=== PATIENT | male | born 1945 | race Two or more races ===

== ENCOUNTER 2022-06-27 11:45 | Outpatient (REF) | payer MEDICARE, SELFPAY ==
[2022-06-27 12:04] LABS: MANUAL DIFF FLAG NO
[2022-06-27 12:26] LABS: Basophils Percent Auto 0.5 % (0-2); Eosinophils Absolute Auto 0.1 X10*3/uL (0.0-0.4); Eosinophils Percent Auto 1.5 % (0-4); Hematocrit 39.9 % (42.0-52.0); Hemoglobin 13.5 g/dl (14.0-18.0); Imm Gran Abs Auto 0.02 X10*3/uL (0.00-0.03); Imm Gran Pct Auto 0.4 % (0.0-0.4); Lymphocytes Absolute Auto 1.9 X10*3/uL (1.2-4.9); Lymphocytes Percent Auto 34.1 % (20-40); Mean Corpuscular HGB Conc 33.8 g/dl (31.0-36.0); Mean Corpuscular Hemoglobin 30.8 pg (27.0-33.0); Mean Corpuscular Volume 90.9 fL (80.0-98.0); Mean Platelet Volume 10.4 fL (9.4-12.4); Monocytes Absolute Auto 0.6 X10*3/uL (0.1-1.2); Monocytes Percent Auto 10.2 % (2-11); Neutrophils Absolute Auto 2.9 x10*3/uL (2.0-8.3); Neutrophils Percent Auto 53.3 % (45-73); Platelet Count 206 X10*3/uL (160-400); Red Blood Count 4.39 X10*6/uL (4.60-5.80); Red Cell Distribution Width 12.5 % (11.0-16.0); White Blood Count 5.5 X10*3/uL (4.8-10.8)
[2022-06-27 13:02] LABS: Anion Gap 10 (12-20); Blood Urea Nitrogen 26 mg/dL (9-16); Calcium 9.5 mg/dL (8.4-10.2); Carbon Dioxide 30 mmol/L (22-29); Chloride 105 mmol/L (96-108); Estimated Glomerular Filt Rate > 60; Glucose Random 103 mg/dL (60-115); Potassium 5.1 mmol/L (3.3-5.1); Sodium 140 mmol/L (135-145)
[2022-06-28 10:52] LABS: Free Prostate Spec Ag 0.4 ng/mL; Percent Free Prostate Spec Ag 29 % (calc) (>25); Prostate Specific Ag Total 1.4 ng/mL (< OR = 4.0)
== END 2022-06-27 11:46 | disposition home or self-care (01) ==
LOC: HO.LAB 11:45
PROVIDERS: PCP Internal Medicine; Visit Provider Psychiatry & Neurology Neurology
DX: Z12.5 Encounter for screening for malignant neoplasm of prostate (principal); G43.909 Migraine, unspecified, not intractable, without status migrainosus
CPT/HCPCS: 36415; 80048; 84154; 85025

== ENCOUNTER → 2024-06-03 15:29 | Outpatient (REF) | payer MEDICARE, OTHER, SELFPAY ==
--- NOTE | 2024-06-03 15:34 | HM_ITS ---
Conclusion: 1. Patient was monitored for total period of 2 days 2. Baseline was normal sinus rhythm with average heart of 51 beats per minute 3. No significant pauses noted but frequent sinus bradycardia noted with 91% of the time heart rate below 60 beats per minute 4. Occasional PACs noted with total burden of 0.9% without any sustained arrhythmias 5. No patient reported events MTDD
== END ==
LOC: HO.CARD 15:29
PROVIDERS: PCP Internal Medicine; Visit Provider Psychiatry & Neurology Neurology
DX: I61.9 Nontraumatic intracerebral hemorrhage, unspecified (principal); I49.1 Atrial premature depolarization
CPT/HCPCS: 93225

== ENCOUNTER → 2024-06-03 15:34 | Outpatient (BNV) | payer MEDICARE, OTHER, SELFPAY | PROVIDERS: PCP Internal Medicine; Visit Provider Internal Medicine Cardiovascular Disease | DX: R00.1 Bradycardia, unspecified (principal) | CPT/HCPCS: 93227 ==

== ENCOUNTER 2025-08-17 11:54 | Outpatient (AMB) | payer MEDICARE, OTHER, SELFPAY ==
--- NOTE | 2025-08-17 12:38 | A.OFFVIS_ITS ---
Intake Visit Reasons: 4m follow up Allergies No Known Allergies Allergy (Verified 08/17/25 11:18) HPI Comments Details: Last week 08/12/25 while walking , his legs started to feel odd like walking on the avery. He thought he was talking gibberish. Was discharged from [facility] after 4 hrs. Was slightly unsteady but walked home a mile. Hi sspeech was slightly off. He had a headache , but vision was Ok. Next day went to [facility] ER. On the morning of 04/09/25 he had a sudden onset of visual disturbance of what he calls black and white with some black spots in his vision and he thought that he couldn't see one half of the vision but is not sure which have it was.? He closed his eyes and sat for 10 min. and then it seems to have cleared he drove to Home [facility] in their he had trouble expressing himself and couldn't convey to the fluid Operationsclerk what he wanted, so he left frustrated and drove to [employer] and sat there for half hour and then felt better and went in and completed his shopping then he went back to come to [facility] and got what he wanted and went home.? By that time he felt fine, all symptoms had resolved.? He then decided that he may have had a TIA, so he went to [facility] emergency room where all of his lab work was normal.? EKG was normal.? He had a CTA of the head and neck which was completely cleaned with no stenosis black or occlusions.? He had an MRI of the brain, the report of which is not available.? And they did not find anything and they discharged him home.? He's had no recurrence of symptoms.? He's had some headaches yesterday and today.? Sometimes he still gets some visual blurring with.? Spots and some blurring with partial visual loss in black spots that come and go.? He had a speech impairment episode with some expressive dysphasia in 2018, but nothing since then. Gets occasional lightheadedness. On May 28 and 2023 he went for his 6-7 mile walk came back and had an unremarkable day. That night he remembers lying down on his yoga mat waiting for the debate. The next thing he remembers is waking up while the debate was going on and noted a bruise on his right cheek and his right shoulder was sore, and his right hip was sore. The next day or 2, he developed right taylor-orbital ecchymosis and a bruise on the right side of the chest. He went to the ER at [facility] and a CAT scan of the head showed 2 small right frontal white matter hemorrhages probably traumatic. There was no mass effect. He had no headache. He had no tongue biting or incontinence. He remains active and is walking daily. No longer lifting weights due to arthritic pains. 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 Few episodes of dizziness while in the shower. No significant headaches. He has trouble sleeping due to frequent nocturia. Wakes every 2hrs to go to the bathroom. Carotid doppler was normal. Having some problems with recalling names. Walks 90 minutes every other day. He had an episode of neurological symptoms on 10/04/19. He noted blurred vision in both eyes and started stuttering his words. There was no facial droop. He was aware of his surroundings. He developed a severe generalized headache and his eyeballs started to feel achy. A couple weeks before that he had a flu shot. He called his doctor the next day and was told to go to the emergency room. He was admitted for observation at [facility] where he had normal blood work, normal CT of the brain, normal CTA of the head and neck and an MRI of the brain which did not show any acute lesions but showed some mild microvascular white matter disease, no subarachnoid hemorrhage. He was discharged from [facility] on aspirin 81 mg, Plavix 75 mg and atorvastatin 80 mg, along with omeprazole. They also recommended a loop monitor. [facility] Medical History (Updated 08/17/25 @ 12:48 by Shania Guallpa MD) Carpal tunnel syndrome of right wrist Cerebral hemorrhage TIA (transient ischemic attack) Migraine HLD (hyperlipidemia) Physical Exam Neuro Other: Neurological: Abnormal neurological findings:??none.?Mental Status:??alert and oriented X 3,?Normal attention, orientation, memory and affect.?Cranial Nerves:??Pupils are equal, round and reactive to light. Fundoscopy shows normal disc bilaterally. External occular muscles are intact. Visual dominguez are full, no ptosis. Face is symmetrical, no facial weakness or droop. Facial sensations are normal. Tongue protrudes in midline. Palate elevates symmetrically. Shoulder shrugging is normal..?Motor Examination:??Normal muscle tone, bulk and strength,?No atrophy or fasciculations,?No drift of the extended upper extremities,?Deep tendon reflexes are 2+?,?Plantars are flexor?.?Straight Leg Raising:??90 degrees.?Sensory Exam:??Normal light touch, temperature, pinprick, vibration and joint-position sensations?,?Rhomberg sign is absent.?Coordination:??no ataxia,?no titubation,?yplshi-pl-wctp, talm-qjzw-nizr test and rapid alternating movements were normal.?Gait Exam:??Within normal limits.?Cerebellar Signs:??Bjxddv-tl-frrs and rlnd-jj-wmop is normal,?no dysdiadochokinesia?.?Extrapyramidal System:??No tremor, rigidity with normal facial expressions,?No bradykinesia, no bradyphrenia. Normal arm swing and posture. No propulsion or retropulsion.?Speech:??Normal,?no dysphasia or dysarthria..? Mini Mental Status Exam: Level of Consciousness:??Alert.?Orientation:??Knows correct year, month, date, day and season,?Knows correct city, county and state. Knows correct location and floor.?Registration:??Able to register 3 objects.?Attention:??Serial 7's performed accurately.?Recall:??Able to recall 3 out of 3 objects.?Language:??Normal spontaneous speech, fluency, repetition,naming, comprehension, reading and writing.?Total Score:??30/30.? General Examination: GENERAL APPEARANCE:??normal,?in no acute distress.?HEART:??S1, S2 normal,?no murmurs.?LUNGS:??clear anteriorly and posteriorly.?MUSCULOSKELETAL:??normal.?EXTREMITIES:??no edema.?PSYCH:??alert, oriented,?cognitive function intact,?cooperative with exam.? Assessment & Plan Assessment & Plan (1) Migraine: Comment: 06/17/24 EEG- WNL MRI of the brain shows subcortical and deep white matter microvascular changes in both hemispheres a total lesions less than 10. Age-related cortical atrophy. CTA of the head and neck was normal. Echocardiogram was unremarkable. Lab work showed mildly elevated total cholesterol and LDL and HDL of 49 CT brain 05/29/24 shows two tiny right frontal subcortical white matter hemorrhages by 6mm. Rest of the brain is normal. No edema or mass effect. I suspect that after lying down on the yoga mat he got up and had an immediate syncopal episode, possibly from a bradycardia dehydration or arrhythmia and fell on his right side sustaining ecchymosis around the right orbit and right cheek, right chest and right hip and right frontal are hemorrhages. There was no evidence of there was a seizure in terms of tongue biting or incontinence and he says that he did not feel confused. His was upstairs so there were no eyewitnesses. He feels fine at this point. Will do workup for syncope versus seizure. 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 Notes: I suspect these are migraine equivalents rather than TIAs because of various territory involvement and mild Sx and completely clean vasculature. May continue Plavix for 3 months then D/C Code(s): G43.909 - Migraine, unspecified, not intractable, without status migrainosus Category: Medical (2) Cerebral hemorrhage: Code(s): I61.9 - Nontraumatic intracerebral hemorrhage, unspecified Category: Medical (3) Carpal tunnel syndrome of right wrist: Code(s): G56.01 - Carpal tunnel syndrome, right upper limb Category: Medical (4) Migraine equivalent syndrome: Code(s): G43.109 - Migraine with aura, not intractable, without status migrainosus Category: Medical Plan Continue current meds. Reassure that these are not TIA and he is not prone to stroke. Coding Level of Care Code Est Pt Level 4 (10937) Diagnoses Migraine G43.909 Cerebral hemorrhage I61.9 Carpal tunnel syndrome of right wrist G56.01 Migraine equivalent syndrome G43.109
--- OUTSIDE RECORDS SUMMARY | 2025-08-17 16:08 | XMS_ITS | Encounter Summary ---
Author Organization [facility] Address [address] [place] [address] Care Team Providers Care Machinist Set Up Name Role Phone Salomón Rivas MD Primary Care Provider Encounter Details Date Type Department Care Team (Late st Contact Info) Description 04/20/2025 Lab Requisition [facility] Lab [address] [place] [phone] Nikia Randle NP [address] [id number] Dysuria Social History Tobacco Use Types Packs/Day Years Used Date Smoking Tobacco: Never Assessed Sex and Gender Information Value Date Recorded Sex Assigned at Not on file Legal Sex Male 12:48 AM EST Gender Identity Not on file Sexual Orientation Not on file documented as of this encounter Plan of Treatment Not on file documented as of this encounter Procedures Procedure Name Priority Date/Time Associated Diagnosis Comments BACTERIAL IDENTIFICATION AND SUSCEPTIBILITY, AEROBIC Routine 04/19/2025 12:00 AM EDT Dysuria documented in this encounter Results * (ABNORMAL) Bacterial identification and susceptibility, aerobic (04/19/2025 12:00 AM EDT) Culture, Bacterial ID and Sensitivity Enterococcus faecalis(A) BAO 04/21/2025 7:56 AM EDT [facility]) [facility] Comment: Edited result: Previously reported as Enterococcus species on 04/20/2025 at 1039 EDT. Other Urine specimen from urethra / Unknown 04/19/2025 04/20/2025 9:59 AM EDT Narrative Organism Antibiotic Method Susceptibility Enterococcus faecalis Benzylpenicillin BAO 2 ug/ml: Susceptible Enterococcus faecalis Ampicillin BAO <=2 ug/ml: Susceptible Enterococcus faecalis Ciprofloxacin BAO <=0.5 ug/ml: Susceptible Enterococcus faecalis Levofloxacin BAO 0.5 ug/ml: Susceptible Enterococcus faecalis Linezolid BAO 2 ug/ml: Susceptible Enterococcus faecalis Vancomycin BAO 1 ug/ml: Susceptible Enterococcus faecalis Tetracycline BAO >=16 ug/ml: Resistant Enterococcus faecalis Nitrofurantoin BAO <=16 ug/ml: Susceptible us Nikia Randle PROFESSOR IN FAMILY STUDIES LAB MICROBIOLOGY - GENERA L ORDERABLES Final Result [facility] ([facility]) [facility] [address] [place] [address], documented in this encounter Visit Diagnoses Diagnosis Dysuria documented in this encounter Care Teams Machinist Set Up Relationship Specialty Start Date End Date Salomón Rivas MD [address] [address] PCP - General Internal Medicine 04/20/25 documented as of this encounter
--- OUTSIDE RECORDS SUMMARY | 2025-08-17 16:08 | XMS_ITS ---
Author Name [facility] Organization Unknown Encounters Encounter Type Encounter Reason Primary Diagnosis Location Date Ambulatory [facility] 04/12/2025 Ambulatory [facility] 04/12/2025 Ambulatory [facility] 09/29/2024 Care Team Organization Name Specialty Phone Email Start Date End Da te [facility] 03/27/2025 [facility] 06/18/2024 [facility] 10/09/2022
--- OUTSIDE RECORDS SUMMARY | 2025-08-17 16:08 | XMS_ITS | Encounter Summary ---
Author Organization [facility] Address [address] [place] [address] Care Team Providers Care Lumber Grader Name Role Phone Salomón Rivas MD Primary Care Provider [phone] Encounter Details Date Type Department Care Team (Late st Contact Info) Description 11/27/2024 Lab Requisition [facility] [address] [facility] [place] [phone] Shane Ramirez MD [address] [phone] Other abnormal findings in urine Social History Tobacco Use Types Packs/Day Years [...] Procedure Name Priority Date/Time Associated Diagnosis Comments CULTURE URINE Routine 11/27/2024 12:32 PM EST Other abnormal findings in urine documented in this encounter Results * (ABNORMAL) Culture urine (11/27/2024 12:32 PM EST) Culture, Urine >100,000 CFU/mL Enterococcus faecalis(A) BAO 11/29/2024 11:06 AM EST [facility] Comment: Edited result: Previously reported as Enterococcus species on 11/28/2024 at 1012 EST. Urine Urine specimen from urethra / Unknown Non-blood Collection / Unknown 11/27/2024 12:32 PM EST 11/27/2024 5:16 PM EST Narrative Organism Antibiotic Method Susceptibility Enterococcus faecalis Benzylpenicillin BAO 4 ug/ml: Susceptible Enterococcus faecalis Ampicillin BAO <=2 ug/ml: Susceptible Enterococcus faecalis Ciprofloxacin ABO <=0.5 ug/ml: Susceptible Enterococcus faecalis Levofloxacin BAO 0.5 ug/ml: Susceptible Enterococcus faecalis Linezolid BAO 2 ug/ml: Susceptible Enterococcus faecalis Vancomycin BAO 1 ug/ml: Susceptible Enterococcus faecalis Tetracycline BAO >=16 ug/ml: Resistant Enterococcus faecalis Nitrofurantoin BAO <=16 ug/ml: Susceptible us Shane Ramirez MD LAB MICROBIOLOGY - GENERAL ORDER MARIA ESTHER Final Result [facility] ([facility]) [facility] [address] [place] [address], documented in this encounter Visit Diagnoses Diagnosis Other abnormal findings in urine documented in this encounter Care Teams Lumber Grader Relationship Specialty Start Date End Date Salomón Rivas MD [address] [address] PCP - General Internal Medicine 04/20/25 documented as of this encounter
--- OUTSIDE RECORDS SUMMARY | 2025-08-17 16:08 | XMS_ITS | Clinical Summary ---
Author Organization [address] [facility] Address [address] [place] [address] Phone Care Team Providers Care Layout Operator Name Role Phone Salomón Rivas MD Primary Care Provider Encounters Date Type Department Care Team Description 05/27/2025 11:47 AM EDT - 05/27/2025 11:59 PM EDT Hospital Encounter [facility] Xray [address] [place] [phone] Pain in right hip Discharge Disposition: Home or Self Care from Last 3 Months Social History Tobacco Use Types Packs/Day Years Used Date Smoking Tobacco: Never Assessed Sex and Gender Information Value Date Recorded Sex Assigned at Not on file Legal Sex Male 12:48 AM EST Gender Identity Not on file Sexual Orientation Not on file Plan of Treatment Health Maintenance Due Date Last Done Comments Zoster Vaccines (1 of 2) 1993 IPV Vaccines (2 of 3 - Adult catch-up series) 10/05/2010 09/07/2010 RSV Immunization Adult Patients (1 - 1-dose 75+ series) 2018 Pneumococcal Vaccine: 50+ Years (2 of 2 - PPSV23) 06/21/2019 06/21/2018 Cholesterol Screening (Lipid Panel) 11/04/2022 Falls Risk Assessment 11/04/2022 Social Influencers of Health Screening 11/04/2022 Medicare Annual Wellness Visit 09/10/2024 09/10/2023 Depression Screening 12/02/2024 COVID-19 Vaccine ( season) 2025 Influenza Vaccine (#1) 2025 3, 08/31/2022, 08/10/2021, Additional history exists DTaP,Tdap,and Td Vaccines (3 - Td or Tdap) 03/12/2033 03/12/2023, 09/07/2010 Hepatitis A Vaccines Aged Out 04/16/2011, 09/07/20 10 No longer eligible based on patient's age to complete this topic HIB Vaccines Aged Out No longer eligi ble based on patient's age to complete this topic HPV Vaccines Aged Out No longer eligi ble based on patient's age to complete this topic Hepatitis B Vaccines Aged Out No long er eligible based on patient's age to complete this topic MMR Vaccines Aged Out No longer eligi ble based on patient's age to complete this topic Meningococcal ACWY Vaccine Aged Out N o longer eligible based on patient's age to complete this topic Meningococcal B Vaccine Aged Out No l onger eligible based on patient's age to complete this topic RSV Immunization Patients Under 20 months Aged Out No longer eligible based on patient's age to complete this topic Varicella Vaccines Aged Out No longer eligible based on patient's age to complete this topic Procedures Procedure Name Priority Date/Time Associated Diagnosis Comments XR HIP 2-3 VIEWS RIGHT Routine 05/27/2025 12:08 PM EDT Pain in right hip from Last 3 Months Results * XR Hip 2-3 Views Right (05/27/2025 12:08 PM EDT) Anatomical Region Laterality Modality Lower Extremities, Hip Right Radiograp hic Imaging 05/27/2025 12:1 3 PM EDT Impressions 05/27/2025 12:14 PM EDT Normal examination of the right hip. There are mild degenerative changes of the included portion of the lower lumbar spine. Code 59137 -------- FINAL REPORT -------- Dictated By: [place] Mckeon Dictated Date: 05/27/2025 12:13 ET Assigned Physician: [place] Mckeon Reviewed and Electronically Signed By: [place] Mckeon Signed Date: 05/27/2025 12:14 ET Workstation ID: [id number] Transcribed By: Self Edit Transcribed Date: 05/27/2025 12:13 ET Narrative 05/27/2025 12:14 PM EDT HISTORY: The patient is an 79-year-old male with right hip pain following a fall. FINDINGS: AP radiograph of the pelvis, along with coned-down AP and external rotation-abduction views of the right hip, are obtained. The study demonstrates no fracture, dislocation, or osteolytic or osteoblastic lesion. No arthritic change is seen in the pelvis and hips. There are mild degenerative changes of the included portion of the lower lumbar spine. No soft tissue abnormality is seen. Procedure Note [place] Mckeon MD - 05/27/2025 HISTORY: The patient is an 79-year-old male with right hip pain followinga fall. FINDINGS: AP radiograph of the pelvis, along with coned-down AP andexternal rotation-abduction views of the right hip, are obtained. Thestudy demonstrates no fracture, dislocation, or osteolytic or osteoblasticlesion. No arthritic change is seen in the pelvis and hips. There are milddegenerative changes of the included portion of the lower lumbar spine. Nosoft tissue abnormality is seen. IMPRESSION: Normal examination of the right hip. There are mild degenerative changesof the included portion of the lower lumbar spine. Code 41085 -------- FINAL REPORT -------- Dictated By: [place] Mckeon Dictated Date: 05/27/2025 12:13 ET Assigned Physician: [place] Mckeon Reviewed and Electronically Signed By: [place] Mckeon Signed Date: 05/27/2025 12:14 ET Workstation ID: [id number] Transcribed By: Self Edit Transcribed Date: 05/27/2025 12:13 ET Jude Chen MD IMG XR PROCEDURES Final Result from Last 3 Months Insurance MEDICARE [facility] Care Teams Layout Operator Relationship Specialty Start Date End Date Salomón Rivas MD [address] [address] PCP - General Internal Medicine 04/20/25
== END 2025-08-17 12:51 | disposition home or self-care (01) ==
LOC: HO.HSM 11:54
PROVIDERS: PCP Internal Medicine; Referring Provider Internal Medicine; Visit Provider Psychiatry & Neurology Neurology
DX: G43.909 Migraine, unspecified, not intractable, without status migrainosus (principal); I61.9 Nontraumatic intracerebral hemorrhage, unspecified; G56.01 Carpal tunnel syndrome, right upper limb; G43.109 Migraine with aura, not intractable, without status migrainosus
CPT/HCPCS: 99214

== ENCOUNTER → 2025-08-17 11:54 | Outpatient (BNVA) | payer MEDICARE, OTHER, SELFPAY | PROVIDERS: PCP Internal Medicine; Referring Provider Internal Medicine; Visit Provider Psychiatry & Neurology Neurology | DX: G43.109 Migraine with aura, not intractable, without status migrainosus (principal); G56.01 Carpal tunnel syndrome, right upper limb; I61.9 Nontraumatic intracerebral hemorrhage, unspecified | CPT/HCPCS: 99212 ==

== ENCOUNTER 2025-11-04 12:21 | Outpatient (REF) | payer MEDICARE, OTHER, SELFPAY ==
--- NOTE | 2025-11-04 13:53 | EEG_ITS ---
History: Patient states on 08/12/25 while walking , his legs started to feel odd like walking on the avery. He thought he was talking gibberish. Was discharged from [facility] after 4 hrs. Was slightly unsteady but walked home a mile. His speech was slightly off. He had a headache , but vision was Ok. Next day went to [facility] ER. Medication: aspirin, atorvastatin, omeprazole Technical Description Photic Stimulation: completed Hyperventilation: omitted Behavioral State: pleasant State of Consciousness: awake and sleep Skull Defect: none Sedation: none Handedness: right Duration: 32 min 46 sec Last Meal: 11/04/25 @ 11:30 AM Time / date of last symptom: 08/12/25 Description: The waking background activity consists of a moderate to high voltage 8 hertz posterior alpha frequency that attenuates well with eye opening and it is intermixed with low-voltage fast frequencies anteriorly. Intermittent bitemporal theta slowing of 6 hertz noted probably associated with drowsiness. No sleep stages are identified. A single sharp discharges seen from the left temporal region towards the end of the tracing. Photic stimulation is without activation. Hyperventilation was omitted. Impression: This awake and drowsy EEG is considered within normal limits [facility]
== END 2025-11-04 12:22 | disposition home or self-care (01) ==
LOC: HO.NEURO 12:21
PROVIDERS: PCP Internal Medicine; Visit Provider Psychiatry & Neurology Neurology
DX: G43.109 Migraine with aura, not intractable, without status migrainosus (principal); I61.9 Nontraumatic intracerebral hemorrhage, unspecified
CPT/HCPCS: 95819

== ENCOUNTER → 2025-11-04 13:53 | Outpatient (BNV) | payer MEDICARE, OTHER, SELFPAY | PROVIDERS: PCP Internal Medicine; Visit Provider Psychiatry & Neurology Neurology | DX: G43.109 Migraine with aura, not intractable, without status migrainosus (principal) | CPT/HCPCS: 95816 ==

== ENCOUNTER 2025-11-09 10:44 | Outpatient (AMB) | payer MEDICARE, OTHER, SELFPAY ==
--- NOTE | 2025-11-09 11:47 | A.OFFVIS_ITS ---
Intake Visit Reasons: 6 Months Allergies No Known Allergies Allergy (Verified 08/17/25 11:18) HPI Comments Details: On 10/13/[address] Sanchez he could not speak and his left hand felt weak. It lasted 30 minutes and cleared. He was seen in [facility] and had another CTA of neck and head which was completely normal again. His EEG is also normal with a single left sided sharp discharge. Before that he had an episode on 08/12/25 while walking , his legs started to feel odd like walking on the avery. He thought he was talking gibberish. Was discharged from [facility] after 4 hrs. Was slightly unsteady but walked home a mile. His speech was slightly off. He had a headache , but vision was Ok. Next day went to [facility] ER. On the morning of 04/09/25 he had a sudden onset of visual disturbance of what he calls black and white with some black spots in his vision and he thought that he couldn't see one half of the vision but is not sure which have it was.? He closed his eyes and sat for 10 min. and then it seems to have cleared he drove to [employer] in their he had trouble expressing himself and couldn't convey to the [employer] what he wanted, so he left frustrated and drove to [employer] and sat there for half hour and then felt better and went in and completed his shopping then he went back to come to [employer] and got what he wanted and went home.? By that time he felt fine, all symptoms had resolved.? He then decided that he may have had a TIA, so he went to [facility] emergency room where all of his lab work was normal.? EKG was normal.? He had a CTA of the head and neck which was completely cleaned with no stenosis black or occlusions.? He had an MRI of the brain, the report of which is not available.? And they did not find anything and they discharged him home.? He's had no recurrence of symptoms.? He's had some headaches yesterday and today.? Sometimes he still gets some visual blurring with.? Spots and some blurring with partial visual loss in black spots that come and go.? He had a speech impairment episode with some expressive dysphasia in 2018, but nothing since then. Gets occasional lightheadedness. On May 28 and 2023 he went for his 6-7 mile walk came back and had an unremarkable day. That night he remembers lying down on his yoga mat waiting for the debate. The next thing he remembers is waking up while the debate was going on and noted a bruise on his right cheek and his right shoulder was sore, and his right hip was sore. The next day or 2, he developed right taylor-orbital ecchymosis and a bruise on the right side of the chest. He went to the ER at [facility] and a CAT scan of the head showed 2 small right frontal white matter hemorrhages probably traumatic. There was no mass effect. He had no headache. He had no tongue biting or incontinence. He remains active and is walking daily. No longer lifting weights due to arthritic pains. 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 Few episodes of dizziness while in the shower. No significant headaches. He has trouble sleeping due to frequent nocturia. Wakes every 2hrs to go to the bathroom. Carotid doppler was normal. Having some problems with recalling names. Walks 90 minutes every other day. He had an episode of neurological symptoms on 10/04/19. He noted blurred vision in both eyes and started stuttering his words. There was no facial droop. He was aware of his surroundings. He developed a severe generalized headache and his eyeballs started to feel achy. A couple weeks before that he had a flu shot. He called his doctor the next day and was told to go to the emergency room. He was admi tted for observation at [facility] where he had normal blood work, normal CT of the brain, normal CTA of the head and neck and an MRI of the brain which did not show any acute lesions but showed some mild microvascular white matter disease, no subarachnoid hemorrhage. He was discharged from [facility] on aspirin 81 mg, Plavix 75 mg and atorvastatin 80 mg, along with omeprazole. They also recommended a loop monitor. [facility] Medical History (Updated 08/17/25 @ 12:48 by Shania Guallpa MD) Carpal tunnel syndrome of right wrist Cerebral hemorrhage TIA (transient ischemic attack) Migraine HLD (hyperlipidemia) Review of Systems Eyes Reports blind spots and Reports blurry vision Neuro Details: transient speech disturbance Reports focal weakness Physical Exam Neuro Other: Neurological: Abnormal neurological findings:??none.?Mental Status:??alert and oriented X 3,?Normal attention, orientation, memory and affect.?Cranial Nerves:??Pupils are equal, round and reactive to light. Fundoscopy shows normal disc bilaterally. External occular muscles are intact. Visual dominguez are full, no ptosis. Face is symmetrical, no facial weakness or droop. Facial sensations are normal. Tongue protrudes in midline. Palate elevates symmetrically. Shoulder shrugging is normal..?Motor Examination:??Normal muscle tone, bulk and strength,?No atrophy or fasciculations,?No drift of the extended upper extremities,?Deep tendon reflexes are 2+?,?Plantars are flexor?.?Straight Leg Raising:??90 degrees.?Sensory Exam:??Normal light touch, temperature, pinprick, vibration and joint-position sensations?,?Rhomberg sign is absent.?Coordination:??no ataxia,?no titubation,?meldor-cb-ocve, qhfa-svxl-[id number] test and rapid alternating movements were normal.?Gait Exam:??Within normal limits.?Cerebellar Signs:??Eejncr-[id number]-iydf and vdzn-ev-sdjh is normal,?no dysdiadochokin esia?.?Extrapyramidal System:??No tremor, rigidity with normal facial expressions,?No bradykinesia, no bradyphrenia. Normal arm swing and posture. No propulsion or retropulsion.?Speech:??Normal,?no dysphasia or dysarthria..? Mini Mental Status Exam: Level of Consciousness:??Alert.?Orientation:??Knows correct year, month, date, day and season,?Knows correct city, county and state. Knows correct location and floor.?Registration:??Able to register 3 objects.?Attention:??Serial 7's performed accurately.?Recall:??Able to recall 3 out of 3 objects.?Language:??Normal spontaneous speech, fluency, repetition,naming, comprehension, reading and writing.?Total Score:??30/30.? General Examination: GENERAL APPEARANCE:??normal,?in no acute distress.?HEART:??S1, S2 normal,?no murmurs.?LUNGS:??clear anteriorly and posteriorly.?MUSCULOSKELETAL:??normal.?EXTREMITIES:??no edema.?PSYCH:??alert, oriented,?cognitive function intact,?cooperative with exam.? Assessment & Plan Assessment & Plan (1) Migraine equivalent syndrome: Code(s): G43.109 - Migraine with aura, not intractable, without status migrainosus Category: Medical (2) Migraine: Comment: 06/17/24 EEG- WNL MRI of the brain shows subcortical and deep white matter microvascular changes in both hemispheres a total lesions less than 10. Age-related cortical atrophy. CTA of the head and neck was normal. Echocardiogram was unremarkable. Lab work showed mildly elevated total cholesterol and LDL and HDL of 49 CT brain 05/29/24 shows two tiny right frontal subcortical white matter hemorrhages by 6mm. Rest of the brain is normal. No edema or mass effect. I suspect that after lying down on the yoga mat he got up and had an immediate syncopal episode, possibly from a bradycardia dehydration or arrhythmia and fell on his right side sustaining ecchymosis around the right orbit and right cheek, right chest and right hip and right frontal are hemorrhages. There was no evidence of there was a seizure in terms of tongue biting or incontinence and he says that he did not feel confused. His was upstairs so there were no eyewitnesses. He feels fine at this point. Will do workup for syncope versus seizure. 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 Notes: I suspect these are migraine equivalents rather than TIAs because of various territory involvement and mild Sx and completely clean vasculature. May continue Plavix for 3 months then D/C Code(s): G43.909 - Migraine, unspecified, not intractable, without status migrainosus Category: Medical (3) Cerebral hemorrhage: Code(s): I61.9 - Nontraumatic intracerebral hemorrhage, unspecified Category: Medical (4) Carpal tunnel syndrome of right wrist: Code(s): G56.01 - Carpal tunnel syndrome, right upper limb Category: Medical Plan Continue current meds. Reassure that these are not TIA and he is not prone to stroke. He does not need to go to the Er each time and can wait 30 minutes which is his usual duration of Sx. Coding Level of Care Code Est Pt Level 5 (28855) Diagnoses Migraine equivalent syndrome G43.109 Migraine G43.909 Cerebral hemorrhage I61.9 Carpal tunnel syndrome of right wrist G56.01
== END 2025-11-09 11:57 | disposition home or self-care (01) ==
LOC: HO.HSM 10:44
PROVIDERS: PCP Internal Medicine; Visit Provider Psychiatry & Neurology Neurology
DX: G43.109 Migraine with aura, not intractable, without status migrainosus (principal); G43.909 Migraine, unspecified, not intractable, without status migrainosus; I61.9 Nontraumatic intracerebral hemorrhage, unspecified; G56.01 Carpal tunnel syndrome, right upper limb
CPT/HCPCS: 99215

== ENCOUNTER → 2025-11-09 10:44 | Outpatient (BNVA) | payer MEDICARE, OTHER, SELFPAY | PROVIDERS: PCP Internal Medicine; Visit Provider Psychiatry & Neurology Neurology | DX: G43.109 Migraine with aura, not intractable, without status migrainosus (principal); G43.909 Migraine, unspecified, not intractable, without status migrainosus; I61.9 Nontraumatic intracerebral hemorrhage, unspecified; G56.01 Carpal tunnel syndrome, right upper limb | CPT/HCPCS: 99212 ==